=== PATIENT | male | born 1995 | race Two or more races ===

== ENCOUNTER 2024-07-09 17:14 | Emergency (ER) | payer MEDICAID ==
[~2024-07-09] VITALS: Ht 182.9 cm; Wt 81.6 kg
[2024-07-09] MEDS ORDERED: HYDROCODONE/APAP 5/325MG TABLET ONE (17:45)
[2024-07-09] MEDS: HYDROCODONE/APAP 5/325MG TABLET PO ONE (17:59)
[2024-07-09] MEDS ORDERED: TRAM50TA2 PO (19:01)
[2024-07-09] MEDS ORDERED: IBUP-1957 PO (19:01)
[2024-07-09] MEDS ORDERED: ACET-2605 PO (19:01)
[2024-07-09 19:45] VITALS: BP 139/86; TEMP 98.2; O2SAT 95
== END 2024-07-09 19:45 | disposition home or self-care (01) ==
LOC: ER 17:14
DX: S82.891A Other fracture of right lower leg, initial encounter for closed fracture (principal); W20.8XXA Other cause of strike by thrown, projected or falling object, initial encounter; Y93.89 Activity, other specified; Y92.098 Other place in other non-institutional residence as the place of occurrence of the external cause; Y99.8 Other external cause status
CPT/HCPCS: 73610-TC; 73630-TC